=== PATIENT | female | born 1960 | race Caucasian/White ===

== ENCOUNTER 2016-07-27 17:20 | Emergency (ER) | payer OTHER ==
[~2016-07-27] VITALS: Ht 160 cm; Wt 68.2 kg
[~2016-07-27 17:20] MED LIST: ACET-2744 PO
[2016-07-27] MEDS ORDERED: HYDROCODONE/ACETAMINOPHEN 5-325 MG TABLET PO ONE (18:30)
[2016-07-27 20:00] VITALS: BP 128/78
== END 2016-07-27 20:23 | disposition home or self-care (01) ==
LOC: EMS 17:22
DX: S83.92XA Sprain of unspecified site of left knee, initial encounter (principal); Z91.041 Radiographic dye allergy status; X58.XXXA Exposure to other specified factors, initial encounter; Y93.89 Activity, other specified; Y92.89 Other specified places as the place of occurrence of the external cause; Y99.8 Other external cause status
CPT/HCPCS: 29505; 99284

== ENCOUNTER 2016-12-16 13:23 | Emergency (ER) | payer OTHER ==
[~2016-12-16] VITALS: Ht 160 cm; Wt 63.6 kg
[2016-12-16 14:04] LABS: BASOPHILS % (AUTO) 0.9 % (0.0-2.0); EOSINOPHILS % (AUTO) 2.3 % (1.0-6.0); HEMATOCRIT 39.1 % (36-46); HEMOGLOBIN 13.4 g/dL (12.0-16.0); LYMPHOCYTES # (AUTO) 1.6 K/uL (1.0-4.8); LYMPHOCYTES % (AUTO) 42.4 % (22.0-44.0); MEAN CORPUSCULAR HEMOGLOBIN 29.2 pg (26.0-34.0); MEAN CORPUSCULAR HGB CONC 34.2 G/dL (31.0-37.0); MEAN CORPUSCULAR VOLUME 85 fL (80-100); MONOCYTES # (AUTO) 0.3 K/uL (0.1-1.0); MONOCYTES % (AUTO) 7.1 % (2.0-9.0); NEUTROPHILS # (AUTO) 1.7 K/uL (1.8-7.7); NEUTROPHILS % (AUTO) 47.3 % (40.0-70.0); PLATELET COUNT (AUTO) 122 K/uL (150-450); RED BLOOD CELL COUNT(AUTO) 4.59 MIL/uL (4.00-5.20); RED CELL DISTRIBUTION WIDTH 14.3 % (11.5-14.5); WHITE BLOOD COUNT (AUTO) 3.7 K/uL (4.5-11.0)
[2016-12-16 14:13] LABS: ANION GAP 10 mmol/L (8-16); CALCIUM, TOTAL 8.9 mg/dL (8.8-10.5); CARBON DIOXIDE 26 mmol/L (22-29); CHLORIDE 105 mmol/L (98-107); CREATININE 0.64 mg/dL (0.60-1.30); GLOMERULAR FILTR. RATE CALC > 60 mL/min (>60); POTASSIUM 3.7 mmol/L (3.5-5.1); SODIUM SERUM 141 mmol/L (136-145); UREA NITROGEN, BLOOD 10 mg/dL (7-18)
[2016-12-16 14:14] LABS: PROTHROMBIN TIME 10.8 SEC (9.4-11.6)
[2016-12-16 14:34] LABS: APPEARANCE,URINE CLEAR (CLEAR); GLUCOSE, URINE (UA) NEGATIVE (NEGATIVE); KETONES,URINE NEGATIVE (NEGATIVE); LEUKOCYTE ESTERASE ,URINE NEGATIVE (NEGATIVE); OCCULT BLOOD,URINE NEGATIVE (NEGATIVE); PH,URINE 6.5 (5.0-8.0); PROTEIN,URINE NEGATIVE (NEGATIVE)
[2016-12-16 14:37] LABS: ALANINE AMINOTRANSFERASE 92 U/L (12-78); ALBUMIN 3.8 g/dL (3.4-5.0); ASPARTATE AMINOTRANSFERASE 52 U/L (15-37); BILIRUBIN,TOTAL 0.3 mg/dL (0.1-1.0); CREATINE KINASE MB 0.6 ng/mL (0-5); CREATINE KINASE, TOTAL 86 U/L (26-192)
[2016-12-16 14:38] LABS: ADD UA MICROSCOPIC NO
[2016-12-16 14:40] LABS: B-TYPE NATRIURETIC PEPTIDE 15 pg/mL (0-100)
[2016-12-16 15:05] VITALS: BP 102/73
== END 2016-12-16 15:33 | disposition home or self-care (01) ==
LOC: EMS 13:24
DX: R07.89 Other chest pain (principal); K21.9 Gastro-esophageal reflux disease without esophagitis; Z91.041 Radiographic dye allergy status
CPT/HCPCS: 93005; 99285